=== PATIENT | male | born 1975 | race Hispanic/Latino ===

== ENCOUNTER 2016-08-23 12:20 | Emergency (ER) | payer BC ==
[2016-08-23 12:35] VITALS: TEMP 99.2
[2016-08-23] MEDS ORDERED: Sodium Chloride 0.9% 1,000 ML IV STA (12:50)
--- NOTE | 2016-08-23 12:52 | ED PDOC ---
HPI: Abdomen Time Seen by Provider: 08/23/16 12:39 Chief Complaint (Nursing): Abdominal Pain Chief Complaint (Provider): abdominal pain History Per: Patient History/Exam Limitations: no limitations Additional Complaint(s): 41yo M in ED for eval of left flank pain x 1 week intermittent abd pain with some dysuria and worsening of pain with use of peroets. PT states he had hx of diverticulitis, suspected that he may be having similar occurrence and started taking cipro/flagy 4d ago with perocets, but sttates the pian has worsened Past Medical History Reviewed: Historical Data, Nursing Documentation, Vital Signs Vital Signs: Last Vital Signs Temp 99.2 F 08/23/16 12:30 Pulse 60 08/23/16 12:30 Resp 16 08/23/16 12:30 BP 149/52 L 08/23/16 12:30 Pulse Ox 98 08/23/16 14:37 - Medical History PMH: Diverticulitis - Family History Family History: States: No Known Family Hx - Home Medications Home Medications: Ambulatory Orders Medication Instructions Recorded Acetaminophen/Oxycodone Hydr 1 tab PO Q6 PRN #20 tab 02/20/14 [Percocet 325 mg-5 mg] Ciprofloxacin/Ciprofloxa HCl 500 mg PO BID #20 tab 02/20/14 [Ciprofloxacin] Metronidazole [Flagyl] 500 mg PO TID #30 tab 02/20/14 Ondansetron ODT [Zofran ODT] 4 mg PO Q6 PRN #20 odt 02/20/14 Ciprofloxacin [Cipro] 500 mg PO BID #14 tab 08/23/16 metroNIDAZOLE [Flagyl] 500 mg PO BID #14 tab 08/23/16 - Allergies Allergies/Adverse Reactions: Allergies Allergy/AdvReac Type Severity Reaction Status Date / Time No Known Allergies Allergy Verified 02/20/14 12:57 Review of Systems ROS Statement: Except As Marked, All Systems Reviewed And Found Negative Constitutional: Negative for: Fever, Chills Gastrointestinal: Positive for: Abdominal Pain. Negative for: Nausea, Vomiting , Diarrhea, Constipation, Melena, Hematochezia, Hematemesis, Rectal Pain Genitourinary Male: Positive for: Dysuria Musculoskeletal: Positive for: Back Pain Physical Exam - Reviewed Nursing Documentation Reviewed: Yes Vital Signs Reviewed: Yes - Physical Exam Appears: Positive for: Non-toxic, No Acute Distress, Uncomfortable Head Exam: Positive for: ATRAUMATIC, NORMAL INSPECTION, NORMOCEPHALIC Skin: Positive for: Normal Color, Warm, DRY Cardiovascular/Chest: Positive for: Regular Rate, Rhythm Respiratory: Positive for: CNT, Normal Breath Sounds Gastrointestinal/Abdominal: Positive for: Bowel Sounds, Soft, Tenderness ( suprapubic pain). Negative for: Distended Back: Positive for: L CVA Tenderness. Negative for: R CVA Tenderness Neurologic/Psych: Positive for: Alert, Oriented - Laboratory Results Result Diagrams: 08/23/16 12:50 08/23/16 12:50 - ECG O2 Sat by Pulse Oximetry: 98 - Progress ED Course And Treament: will r/o renal stone-cbc/cmp/UA/CT Medical Decision Making Medical Decision Making: pt without significantly elevated WBC. pt on CT shows diverticulitis pt with stable VS and improved somewhat in ED. pt will be d./c on dietary precautions and given cipro and fagly with f.u with GI. Disposition - Clinical Impression Clinical Impression: Diverticulitis, Back pain - Patient ED Disposition Is Patient to be Admitted: No Counseled Patient/Family Regarding: Studies Performed, Diagnosis, Need For Followup, Rx Given - Disposition Disposition: Routine/Home Disposition Time: 15:30 Condition: STABLE Prescriptions: Ciprofloxacin [Cipro] 500 mg PO BID #14 tab metroNIDAZOLE [Flagyl] 500 mg PO BID #14 tab Instructions: Diverticulitis (ED) Forms: [facility] ED School/Work Excuse
[2016-08-23 13:04] LABS: BASO # 0.1 K/uL (0.0-0.2); BASO % 0.7 % (0.0-2.0); EOS # 0.1 K/uL (0.0-0.7); EOS % 0.8 % (0.0-4.0); HEMATOCRIT 41.4 % (35.0-51.0); LYMPH # 2.5 K/uL (1.0-4.3); LYMPH % 21.2 % (20.0-40.0); MEAN CELL VOLUME 84.5 fl (80.0-94.0); MEAN CORPUSCULAR HEMOGLOBIN 29.9 pg (27.0-31.0); MEAN CORPUSCULAR HGB CONC 35.3 g/dL (33.0-37.0); MEAN PLATELET VOLUME 7.4 fl (7.2-11.7); MONO # 0.8 K/uL (0.0-0.8); MONO % 7.1 % (0.0-10.0); NEUT # 8.3 K/uL (1.8-7.0); NEUT % 70.2 % (50.0-75.0); NRBC % 0.1 % (0.0-0.0); RED CELL DISTRIBUTION WIDTH 13.5 % (11.5-14.5); WHITE BLOOD COUNT 11.9 K/uL (4.8-10.8)
[2016-08-23 13:15] LABS: ALB/GLOB RATIO 1.3 (1.0-2.1); ALKALINE PHOSPHATASE 68 U/L (38-126); ALT/SGPT 17 U/L (21-72); AST/SGOT 28 U/L (17-59); BILIRUBIN,TOTAL 1.4 mg/dl (0.2-1.3); BLOOD UREA NITROGEN 10 mg/dl (9-20); CARBON DIOXIDE 29 mmol/L (22-30); CHLORIDE 102 mmol/L (98-107); GFR AFRICAN-AMERICAN > 60; GLUCOSE,RANDOM 91 mg/dL (75-110); POTASSIUM 4.2 MMOL/L (3.6-5.0); SODIUM 144 mmol/l (132-148); TOTAL PROTEIN 8.1 G/DL (6.3-8.2)
--- NOTE | 2016-08-23 14:35 | CT ---
PROCEDURE: CT abdomen and pelvis dated 08/23/2016 HISTORY: flank pain with dysuria COMPARISON: Comparison made with CT scan of the abdomen and pelvis dated 02/20/2014. TECHNIQUE: Contiguous axial images of the abdomen and pelvis performed without oral or intravenous contrast material. . Coronal and Sagittal reformats generated. Radiation dose: Total exam DLP = 1176.68 mGy-cm. This CT exam was performed using one or more of the following dose reduction techniques: Automated exposure control, adjustment of the mA and/or kV according to patient size, and/or use of iterative reconstruction technique. FINDINGS: LOWER THORAX: Lung bases are clear. No infiltrate effusion or basilar pneumothorax. There is a tiny hiatal hernia. Heart size within range of normal. No evidence of significant pericardial effusion. LIVER: The liver is mildly enlarged measuring approximately 21 cm in CC dimension. Liver demonstrates and attenuation pattern. There does appear to be a few tiny low attenuation foci scattered throughout the hepatic parenchyma too small to characterize. . . No evidence of abdominal ascites seen. GALLBLADDER AND BILE DUCTS: Gallbladder appears incompletely distended likely due to nonfasting state. No obvious intraluminal gallbladder calculi. PANCREAS: Unremarkable. No mass. No ductal dilatation. SPLEEN: Spleen is mildly enlarged measuring approximately 15 cm in CC dimension. No splenic mass collection or calcifications. ADRENALS: No definitive adrenal lesions seen. KIDNEYS AND URETERS: Kidneys exhibit relatively symmetric size. No evidence of nephrolithiasis or hydronephrosis. There is a slight columnization of the left ureter with slight thickening of the wall. Findings could represent ascending urinary tract infection. Clinic correlation recommended. BLADDER: The urinary bladder is incompletely distended. Urinary bladder wall is slightly prominent which could in part be due to muscular hypertrophy however the possibility of a cystitis cannot be excluded. Clinical correlation recommended. REPRODUCTIVE: Few tiny prostatic calcifications are present. There appears to be a small right-sided hydrocele. APPENDIX: The appendix grossly unremarkable best seen on axial image number [id number]. No periappendiceal inflammatory changes. BOWEL: Evaluation of the bowel is somewhat limited due to the lack of oral contrast material. The stomach is incompletely distended which presumably accounts for thick-walled appearance. Gastritis or other intrinsic/invasive wall lesion not excluded. Visualized loops of small bowel exhibit relatively normal contour and caliber. No evidence of acute mechanical small bowel obstruction. There are multiple colonic diverticula seen including right-sided colonic diverticula though the bulk arise from the sigmoid colon. Wall thickening of the sigmoid colon may in part be due to adherent under non-opacified stool however chronic muscular hypertrophy may contribute however the however there are some vague infiltration changes also noted in the adjacent mesentery and the possibility of developing mild acute diverticulitis suspected. PERITONEUM: No evidence of free intraperitoneal air or fluid. Tiny bilateral fat containing inguinal hernias. Small fat containing umbilical hernia. LYMPH NODES: Unremarkable. No enlarged lymph nodes. VASCULATURE: Unremarkable. No aortic aneurysm. BONES: No fracture or destructive lesion. OTHER FINDINGS: None. IMPRESSION: There is mild columnization of the left ureter with slight prominence of the ureteral wall ; findings could represent an ascending urinary tract infection . Multiple colonic diverticula including right-sided colonic diverticula however the bulk of the diverticula arise from the sigmoid colon. There is also wall thickening of a short segment of the sigmoid colon with mild infiltration in the adjacent mesenteric. Findings suggest mild early acute diverticulitis. Clinical correlation recommended. Hepatomegaly with a few tiny foci of low attenuation too small to characterize.
[2016-08-23 15:19] LABS: RBC URINE 2 /hpf (0-3); URINE BILIRUBIN NEGATIVE (NEGATIVE); URINE BLOOD NEGATIVE (NEGATIVE); URINE COLOR YELLOW (YELLOW); URINE GLUCOSE (UA) NEG (Normal); URINE KETONE NEGATIVE (NEGATIVE); URINE LEUKOCYTE ESTERASE TRACE Leu/uL (Negative); URINE PROTEIN NEGATIVE (NEGATIVE); URINE UROBILINOGEN 0.2-1.0 mg/dL (0.2-1.0); WBC URINE 1 /hpf (0-5)
[2016-08-23 16:00] VITALS: BP 118/60; PULSE 61; RESP 18; O2SAT 100
== END 2016-08-23 15:58 | disposition home or self-care (01) ==
LOC: H.ER 12:20
DX: K57.92 Diverticulitis of intestine, part unspecified, without perforation or abscess without bleeding (principal); M54.9 Dorsalgia, unspecified; R10.9 Unspecified abdominal pain
CPT/HCPCS: 74176; 80053; 81003; 85025; 96361; 96374; 99283; J1885; J7040